=== PATIENT | male | born 1945 | race Caucasian/White ===

== ENCOUNTER 2017-10-30 06:33 | Day surgery (SDC) | payer OTHER | END 2017-10-30 12:15 | disposition home or self-care (01) | LOC: AMB-ENDOS 06:33 | DX: D12.8 Benign neoplasm of rectum (principal); D12.2 Benign neoplasm of ascending colon; D12.4 Benign neoplasm of descending colon; D12.5 Benign neoplasm of sigmoid colon; D12.3 Benign neoplasm of transverse colon; K64.8 Other hemorrhoids; K62.1 Rectal polyp; K63.5 Polyp of colon ==

== ENCOUNTER 2017-11-27 11:15 | Inpatient (IN) | payer OTHER ==
[~2017-11-27] VITALS: Ht 172.7 cm; Wt 113.4 kg
[2017-11-27] MEDS ORDERED: HUMALOG100 UNIT/1 ×2 (13:06→13:07)
[2017-11-27] MEDS ORDERED: LANTUS SOL100 UNIT/1 (13:06)
[2017-11-27] MEDS ORDERED: TOPROL XL100 M1 PO (13:07)
[2017-11-27] MEDS ORDERED: GLIMEPIRIDE4 MG PO (13:07)
[2017-11-27] MEDS ORDERED: AZOR 5-20 MG T1 EACH PO (13:08)
[2017-11-27] MEDS ORDERED: DOXAZOSIN MESYLA4 MG PO (13:08)
[2017-11-27] MEDS ORDERED: DIOVAN320 MG PO (13:08)
[2017-11-27] MEDS ORDERED: SIMVASTATIN20 MG PO (13:09)
[2018-01-23] MEDS ORDERED: TAMSULOSIN HCL0.4 MG PO (13:54)
[2018-01-23] MEDS ORDERED: MINOCIN100 MG PO (13:54)
[2018-01-23] MEDS ORDERED: AMLODIPINE BESY10 MG PO (13:55)
[2018-01-23] MEDS ORDERED: INTEGRA PLUS C1 EACH PO (13:55)
[2018-01-23] MEDS ORDERED: SIMVASTATIN20 MG PO (13:58)
[2018-01-23] MEDS ORDERED: IMODIUM A-D2 M2 PO (13:58)
[2018-01-23] MEDS ORDERED: PYRIDOXINE HCL100 M1 PO (13:59)
[2018-01-23] MEDS ORDERED: APETIGEN L790 MG/15 PO (13:59)
[2018-01-23] MEDS ORDERED: PRE PROTEIN 2030 ML NGT (14:00)
[2018-01-23] MEDS ORDERED: LASIX20 MG PO (14:01)
[2018-01-23] MEDS ORDERED: Neurin-Sl Tablet Sl SL (14:04)
[2018-01-23] MEDS ORDERED: ISOSORBIDE MONO30 MG PO (14:04)
[2018-01-23] MEDS ORDERED: CARdura 4MG TABLET PO (14:04)
[2018-01-23] MEDS ORDERED: TOPROL XL100 M1 PO (14:04)
[2018-01-23] MEDS ORDERED: Intestinex CAP PO (14:04)
== END 2018-01-23 17:06 | DRG 329 ==
LOC: SURH 11-29 11:15 → ICU 12-20 05:38 → O/R 12-20 05:38 → SURH 12-20 07:00 → ICU 12-20 23:47 → MEDI 01-09 20:53 → SURH 01-09 20:53 → MEDJ 01-15 11:34 → SURH 01-15 11:37
PROVIDERS: Colon & Rectal Surgery
PROC: 0DBU4ZZ Excision of Omentum, Percutaneous Endoscopic Approach (ICD-10-PCS; 2017-12-20)
PROC: 07TC4ZZ Resection of Pelvis Lymphatic, Percutaneous Endoscopic Approach (ICD-10-PCS; 2017-12-20)
PROC: 0WQF4ZZ Repair Abdominal Wall, Percutaneous Endoscopic Approach (ICD-10-PCS; 2017-12-20)
PROC: 0DJD8ZZ Inspection of Lower Intestinal Tract, Via Natural or Artificial Opening Endoscopic (ICD-10-PCS; 2017-12-20)
PROC: 4A033R1 Measurement of Arterial Saturation, Peripheral, Percutaneous Approach (ICD-10-PCS; 2017-12-20)
PROC: 3E0F7GC Introduction of Other Therapeutic Substance into Respiratory Tract, Via Natural or Artificial Opening (ICD-10-PCS; 2017-12-20)
PROC: 5A1955Z Respiratory Ventilation, Greater than 96 Consecutive Hours (ICD-10-PCS; 2017-12-20)
PROC: 0BH17EZ Insertion of Endotracheal Airway into Trachea, Via Natural or Artificial Opening (ICD-10-PCS; 2017-12-20)
PROC: 0DTE4ZZ Resection of Large Intestine, Percutaneous Endoscopic Approach (ICD-10-PCS; principal; 2017-12-20 07:00)
PROC: B246ZZZ Ultrasonography of Right and Left Heart (ICD-10-PCS; 2017-12-21)
PROC: 3E0336Z Introduction of Nutritional Substance into Peripheral Vein, Percutaneous Approach (ICD-10-PCS; 2017-12-23)
PROC: 05H433Z Insertion of Infusion Device into Left Innominate Vein, Percutaneous Approach (ICD-10-PCS; 2017-12-23)
PROC: BB24ZZZ Computerized Tomography (CT Scan) of Bilateral Lungs (ICD-10-PCS; 2017-12-24)
PROC: BW21Y0Z Computerized Tomography (CT Scan) of Abdomen and Pelvis using Other Contrast, Unenhanced and Enhanced (ICD-10-PCS; 2017-12-24)
PROC: 0W993ZX Drainage of Right Pleural Cavity, Percutaneous Approach, Diagnostic (ICD-10-PCS; 2017-12-27)
PROC: B246ZZZ Ultrasonography of Right and Left Heart (ICD-10-PCS; 2017-12-28)
PROC: BW21Y0Z Computerized Tomography (CT Scan) of Abdomen and Pelvis using Other Contrast, Unenhanced and Enhanced (ICD-10-PCS; 2017-12-30)
PROC: BB24ZZZ Computerized Tomography (CT Scan) of Bilateral Lungs (ICD-10-PCS; 2017-12-30)
PROC: 5A09457 Assistance with Respiratory Ventilation, 24-96 Consecutive Hours, Continuous Positive Airway Pressure (ICD-10-PCS; 2018-01-05)
PROC: 02HV33Z Insertion of Infusion Device into Superior Vena Cava, Percutaneous Approach (ICD-10-PCS; 2018-01-08)
PROC: B54NZZZ Ultrasonography of Left Upper Extremity Veins (ICD-10-PCS; 2018-01-10)
PROC: 4A12X4Z Monitoring of Cardiac Electrical Activity, External Approach (ICD-10-PCS; 2018-01-10)
PROC: B246ZZZ Ultrasonography of Right and Left Heart (ICD-10-PCS; 2018-01-15)
PROC: 8E0ZXY6 Isolation (ICD-10-PCS; 2018-01-15)
DX: D12.2 Benign neoplasm of ascending colon (principal); J95.821 Acute postprocedural respiratory failure; J18.9 Pneumonia, unspecified organism; I50.33 Acute on chronic diastolic (congestive) heart failure; B37.7 Candidal sepsis; N17.8 Other acute kidney failure; T81.4XXA Infection following a procedure, initial encounter; L03.311 Cellulitis of abdominal wall; I97.89 Other postprocedural complications and disorders of the circulatory system, not elsewhere classified; I47.1 Supraventricular tachycardia; J90 Pleural effusion, not elsewhere classified; J95.89 Other postprocedural complications and disorders of respiratory system, not elsewhere classified; I97.131 Postprocedural heart failure following other surgery; L03.114 Cellulitis of left upper limb; N13.8 Other obstructive and reflux uropathy; N41.0 Acute prostatitis; B37.0 Candidal stomatitis; T83.511A Infection and inflammatory reaction due to indwelling urethral catheter, initial encounter; N39.0 Urinary tract infection, site not specified; K43.9 Ventral hernia without obstruction or gangrene; I10 Essential (primary) hypertension; E78.00 Pure hypercholesterolemia, unspecified; G47.33 Obstructive sleep apnea (adult) (pediatric); E66.8 Other obesity; N99.0 Postprocedural (acute) (chronic) kidney failure; E11.65 Type 2 diabetes mellitus with hyperglycemia; D12.8 Benign neoplasm of rectum; K31.84 Gastroparesis; N40.1 Benign prostatic hyperplasia with lower urinary tract symptoms; D64.89 Other specified anemias; B96.5 Pseudomonas (aeruginosa) (mallei) (pseudomallei) as the cause of diseases classified elsewhere; Z78.1 Physical restraint status